=== PATIENT | female | born 1945 | race Caucasian/White ===

== ENCOUNTER 2017-04-11 07:40 | Emergency (ER) | payer MEDICARE ==
[~2017-04-11] VITALS: Ht 162.6 cm; Wt 70.0 kg
[~2017-04-11 07:40] MED LIST: BONIVA150 MG PO; DIOVAN160 MG OR; FOSAMAX70 MG PO; HYDROCHLOROT12.5 MG OR; HYDROCHLOROT12.5 MG PO; LIPITOR40 MG PO; ZYLOPRIM100 MG PO
[2017-04-11] MEDS ORDERED: DIOVAN HC1 PO (08:09)
[2017-04-11] MEDS ORDERED: ASPIRIN LOW DOS81 M1 PO (08:10)
[2017-04-11] MEDS ORDERED: VITAMIN B-12500 MCG PO (08:12)
[2017-04-11] MEDS ORDERED: VITAMIN D31000 UNI1 PO (08:13)
[2017-04-11 08:33] LABS: HEMATOCRIT 42.2 % (37.0-47.0); HEMOGLOBIN 14.7 g/dl (12.0-16.0); IMMATURE GRANULOCYTES 0.2 % (0.0-1.0); MEAN CELL VOLUME 97.9 fL CALC (80.0-100.0); MEAN CORPUSCULAR HGB 34.1 pG CALC (26.0-32.0); MEAN CORPUSCULAR HGB CONC 34.8 g/L CALC (32.0-36.0); NEUT# 3.11 thou/uL (2.00-7.15); RED BLOOD COUNT 4.31 mill/uL (4.20-5.60); RED CELL DISTRI WIDTH 12.6 % (11.5-15.5)
[2017-04-11 08:43] LABS: ALBUMIN 4.8 g/dL (3.2-5.0); ALKALINE PHOSPHATASE 61 u/l (38-126); ANION GAP 18 (6-22 (CALC)); BILIRUBIN, TOTAL 0.7 mg/dL (0.0-1.4); BUN 12 mg/dL (8-23); BUN/CREATININE RATIO 17 (12-20 (CALC)); CALCIUM 10.4 mg/dL (8.4-10.2); CARBON DIOXIDE 22 mmol/l (22-30); CHLORIDE 101 mmol/l (95-108); CREATININE 0.7 mg/dL (0.5-1.0); GFR > 60 ML/MIN (>=60 (CALC)); GFR FOR AFR.AMER. > 60 ML/MIN (>=60 (CALC)); GLUCOSE 127 mg/dL (82-115); POTASSIUM 3.6 mmol/l (3.5-5.1); SGOT/AST 41 u/l (9-36); SGPT/ALT 56 u/l (11-66); SODIUM 138 mmol/l (137-146); TOTAL PROTEIN 7.7 g/dL (6.3-8.2)
[2017-04-11 09:27] VITALS: BP 138/63
== END 2017-04-11 09:27 | disposition home or self-care (01) ==
LOC: ED 07:40
PROVIDERS: Emergency Medicine
DX: R25.3 Fasciculation (principal); F41.9 Anxiety disorder, unspecified; I10 Essential (primary) hypertension